=== PATIENT | female | born 1985 | race African-American/Black ===

== ENCOUNTER 2016-06-15 16:02 | Emergency (ER) | payer SELFPAY ==
[~2016-06-15] VITALS: Ht 162.6 cm; Wt 60.3 kg
[2016-06-15 16:23] VITALS: BP 132/72
[2016-06-15] MEDS ORDERED: CLIN-44 PO (16:37)
--- NOTE | 2016-06-15 16:37 | PHYS DOC ---
Past Medical History Past Medical History: No Pertinent History Past Surgical History: No Surgical History Alcohol Use: None Drug Use: None Adult General Chief Complaint Chief Complaint: INSECT BITE [facility] HPI Patient is a 30 year old female who presents with red and swollen area to right leg for three days. Denies health problems, fever, body aches. No interventions prior to arrival Review of Systems Review of Systems [] Eyes: Denies change in visual acuity, redness, or eye pain [] HENT: Denies nasal congestion or sore throat [] Respiratory: Denies cough or shortness of breath [] Cardiovascular: No additional information not addressed in HPI [] GI: Denies abdominal pain, nausea, vomiting, bloody stools or diarrhea [] : Denies dysuria or hematuria [] Musculoskeletal: Denies back pain or joint pain [] Integument: Red swollen area to right leg Neurologic: Denies headache, focal weakness or sensory changes [] Endocrine: Denies polyuria or polydipsia [] Allergies Allergies Allergies Coded Allergies Type Severity Reaction Last Updated Verified Penicillins Allergy Mild VOMITING 06/15/16 Yes Physical Exam Physical Exam Constitutional: Well developed, well nourished, no acute distress, non-toxic appearance. HENT: Normocephalic, atraumatic, bilateral external ears normal, oropharynx moist, no oral exudates, nose normal. Eyes: PERRLA, EOMI, conjunctiva normal, no discharge. Neck: Normal range of motion, no tenderness, supple, no stridor. Cardiovascular:Heart rate regular rhythm, no murmur Lungs & Thorax: Bilateral breath sounds clear to auscultation Abdomen: Bowel sounds normal, soft, no tenderness, no masses, no pulsatile masses. Skin: 3cm diameter of erythema to right anterior acuna. punctum in center, no induration, streaking Back: No tenderness, no CVA tenderness. [] Extremities: No tenderness, no cyanosis, no clubbing, ROM intact, no edema. [] Neurologic: Alert and oriented X 3, normal motor function, normal sensory function, no focal deficits noted. [] Psychologic: Affect normal, judgement normal, mood normal. [] Current Patient Data Vital Signs Vital Signs Date Time Temp Pulse Resp B/P Pulse Ox O2 Delivery O2 Flow Rate FiO2 06/15/16 16:23 97.8 96 18 100 Room Air 97.8 EKG EKG [] Radiology/Procedures Radiology/Procedures [] Impressions: 1. Cellulitis Course & Med Decision Making Course & Med Decision Making Pertinent Labs and Imaging studies reviewed. (See chart for details) [] Cathyon Disclaimer Cathyon Disclaimer This electronic medical record was generated, in whole or in part, using a voice recognition dictation system. Departure Departure Impression: Primary Impression: Cellulitis Disposition: HOME, SELF-CARE Condition: STABLE Patient Instructions: Cellulitis, [id number] Additional Instructions: 1. Take antibiotic as prescribed 2. Take Ibuprofen as directed for inflammation and pain 3. Follow up with primary doctor in 1-2 days 4. Return if problems or concerns Scripts Clindamycin Hcl 150 Mg Capsule2 Cap PO QID #56 CAP Prov:WM PA APRN 06/15/16 Problem Qualifiers Primary Impression: Cellulitis Site of cellulitis: extremity Site of cellulitis of extremity: lower extremity Laterality: right Qualified Code: L03.115 - Cellulitis of right lower limb WM PA APRN Jun 15, 2016 16:37
== END 2016-06-15 16:55 | disposition home or self-care (01) ==
LOC: ER 16:02
DX: L03.115 Cellulitis of right lower limb (principal); Z88.0 Allergy status to penicillin
CPT/HCPCS: 99283